=== PATIENT | male | born 1995 | race Caucasian/White ===

== ENCOUNTER 2021-01-13 01:00 | Emergency (ER) | payer OTHER ==
[2021-01-13] MEDS ORDERED: LODINE CAP 300300 MG PO (01:50)
[2021-01-13] MEDS ORDERED: AUGMENTIN 875-1 EACH PO (01:50)
== END 2021-01-13 02:05 | disposition home or self-care (01) ==
LOC: ER1 01:00
DX: S60.512A Abrasion of left hand, initial encounter (principal); S60.511A Abrasion of right hand, initial encounter; F17.290 Nicotine dependence, other tobacco product, uncomplicated; W55.03XA Scratched by cat, initial encounter
CPT/HCPCS: 73130; 90471; 90714; 96372; 99283; J1885

== ENCOUNTER 2021-01-13 04:46 | Emergency (ER) | payer OTHER ==
[~2021-01-13 04:46] MED LIST: AUGMENTIN 875-1 EACH PO; LODINE CAP 300300 MG PO
== END 2021-01-13 06:00 | disposition home or self-care (01) ==
LOC: ER1 04:46
DX: S60.512A Abrasion of left hand, initial encounter (principal); S60.511A Abrasion of right hand, initial encounter; F17.290 Nicotine dependence, other tobacco product, uncomplicated; W55.03XA Scratched by cat, initial encounter; Y92.009 Unspecified place in unspecified non-institutional (private) residence as the place of occurrence of the external cause
CPT/HCPCS: 73130; 90714; J1885

== ENCOUNTER 2021-09-15 06:32 | Emergency (ER) | payer SELFPAY ==
[2021-09-15 07:27] LABS: HEMOGLOBIN 16.1 gm/dl (14.0-17.5); RED BLOOD COUNT 5.55 M/UL (4.20-5.50); WHITE BLOOD COUNT 11.1 K/UL (4.5-11.0)
[2021-09-15 07:47] LABS: BUN/CREATININE RATIO 9 (0-10)
== END 2021-09-15 09:25 | disposition home or self-care (01) ==
LOC: ER1 06:32
PROVIDERS: Physician Assistant
DX: R10.9 Unspecified abdominal pain (principal); F17.200 Nicotine dependence, unspecified, uncomplicated
CPT/HCPCS: 80053; 81001; 83690; 85025; 99284; Q9967